=== PATIENT | male | born 1970 | race Caucasian/White ===

== ENCOUNTER 2023-01-05 11:43 | Outpatient (CLI) | payer MEDICAID, SELFPAY | END 2023-01-05 11:44 | disposition home or self-care (01) | PROVIDERS: PCP Internal Medicine; Visit Provider Internal Medicine | DX: Z00.00 Encounter for general adult medical examination without abnormal findings (principal); I10 Essential (primary) hypertension; Z11.3 Encounter for screening for infections with a predominantly sexual mode of transmission; Z13.6 Encounter for screening for cardiovascular disorders | CPT/HCPCS: 80053; 80061; 84153; 86592; 86703; 86803; 87491; 87591 ==

== ENCOUNTER 2023-11-03 10:25 | Outpatient (REF) | payer MEDICAID, SELFPAY | END 2023-11-03 10:26 | disposition home or self-care (01) | LOC: NFLDREF 10:25 | PROVIDERS: PCP Internal Medicine; Referring Provider Internal Medicine; Visit Provider Internal Medicine | DX: I10 Essential (primary) hypertension (principal); Z12.5 Encounter for screening for malignant neoplasm of prostate | CPT/HCPCS: 80048; 82565; G0103 ==

== ENCOUNTER 2025-04-07 15:54 | Outpatient (CLI) | payer MEDICAID, SELFPAY | END 2025-04-07 15:55 | disposition home or self-care (01) | PROVIDERS: PCP Internal Medicine; Referring Provider Internal Medicine; Visit Provider Internal Medicine | DX: Z13.6 Encounter for screening for cardiovascular disorders (principal); Z12.5 Encounter for screening for malignant neoplasm of prostate | CPT/HCPCS: 80061; G0103 ==

== ENCOUNTER 2025-04-21 13:55 | Outpatient (CLI) | payer MEDICAID, SELFPAY | END 2025-04-21 13:56 | disposition home or self-care (01) | LOC: NFLDREF 04-23 17:10 | PROVIDERS: PCP Internal Medicine; Referring Provider Internal Medicine; Visit Provider Internal Medicine | DX: I10 Essential (primary) hypertension (principal) | CPT/HCPCS: 80053 ==